=== PATIENT | female | born 1980 | race Caucasian/White ===

== ENCOUNTER 2024-10-29 20:24 | Emergency (ER) | payer MEDICAID, SELFPAY ==
[2024-10-29 20:27] VITALS: BMI 15.2
[2024-10-29 20:33] VITALS: BP 99/57; PULSE 94; RESP 20; TEMP 36.9; O2SAT 100
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
[2024-10-29 22:06] LABS: HCG Qualitative,Urine Negative
--- NOTE | 2024-10-29 22:56 | PC.NURSE ---
CT called out for patient. no answer x [phone] at [phone]
--- NOTE | 2024-10-29 22:57 | PC.NURSE ---
NO ANSWER AT ER LOBBY OR OUTSIDE TO DO CT.
--- NOTE | 2024-10-29 23:06 | PC.NURSE ---
NO ANSWER AT ER LOBBY OR OUTSIDE ER TO DO CT.
--- NOTE | 2024-10-29 23:13 | PC.NURSE ---
NO ANSWER AT ER LOBBY OR OUTSIDE TO DO CT.
== END 2024-10-29 23:15 | disposition left against medical advice (07) ==
LOC: SERX 20:50
PROVIDERS: Physician Assistant; Emergency Provider Emergency Medicine; PCP Family Medicine
DX: S29.9XXA Unspecified injury of thorax, initial encounter (principal); Y04.0XXA Assault by unarmed brawl or fight, initial encounter; Z53.29 Procedure and treatment not carried out because of patient's decision for other reasons
CPT/HCPCS: 81025; 99281

== ENCOUNTER 2024-10-30 14:43 | Emergency (ER) | payer MEDICAID, SELFPAY ==
[2024-10-30 14:44] VITALS: BMI 15.2
[2024-10-30 14:56] VITALS: BP 105/60; PULSE 90; RESP 18; TEMP 37.2; O2SAT 97
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
== END 2024-10-30 15:52 | disposition home or self-care (01) ==
PROVIDERS: Emergency Provider Emergency Medicine
DX: S20.219A Contusion of unspecified front wall of thorax, initial encounter (principal); Y04.0XXA Assault by unarmed brawl or fight, initial encounter
CPT/HCPCS: 71046; 99283